=== PATIENT | female | born 1945 | race Caucasian/White ===

== ENCOUNTER 2022-02-03 14:35 | Inpatient (IN) | payer OTHER ==
[~2022-02-03] VITALS: Ht 162.6 cm; Wt 56.4 kg
[2022-02-03] MEDS ORDERED: ONDANSETRON HCL 4 MG/2 ML VIAL IV ONE (15:00)
[2022-02-03] MEDS ORDERED: MORPHINE SULFATE 4 MG/ML SYR/VIAL IV ONE (15:00)
[2022-02-03 15:18] LABS: Basophils # (auto) 0 10 ^3/uL (0-0.2); Basophils % (auto) 0.3 % (0.0-2.0); Eosinophils # (auto) 0.2 10 ^3/uL (0-0.8); Eosinophils % (auto) 2.4 % (0.0-7.0); Hematocrit 39.6 % (36.0-46.0); Hemoglobin 12.9 g/dL (12.2-16.2); Lymphocytes # (auto) 1.7 10 ^3/uL (0.4-5.4); Lymphocytes % (auto) 18.7 % (10.0-50.0); Mean Corpuscular Hemoglobin 27.8 pg (28.0-32.0); Mean Corpuscular Hgb Conc. 32.7 g/dL (32.0-36.0); Monocytes # (auto) 0.6 10 ^3/uL (0-1.3); Monocytes % (auto) 7.1 % (0.0-12.0); Neutrophils # (auto) 6.3 10 ^3/uL (1.6-8.6); Neutrophils % (auto) 71.5 % (37.0-80.0); Red Blood Cells 4.66 10^6/uL (4.0-5.20); Red Cell Distribution Width 15.6 % (11.8-14.3); White Blood Cell 8.9 10^3/uL (4.4-10.8)
[2022-02-03 15:30] LABS: INR 0.97 (0.9-1.15); Partial Thromboplastin Time 23.3 sec (24.6-33.4)
[2022-02-03 15:32] LABS: Albumin 3.2 g/dL (3.4-5.0); BUN/Creatinine Ratio 14.3; Calcium 8.7 mg/dL (8.5-10.1); Potassium 3.5 mmol/L (3.5-5.1)
[2022-02-03 15:35] LABS: Bilirubin, Total 0.2 mg/dL (0.2-1.0)
[2022-02-03] MEDS ORDERED: ONDANSETRON HCL 4 MG/2 ML VIAL IV PRN (21:15)
[2022-02-03] MEDS ORDERED: SOD CHL 0.45% 1,000 ML IV ONE (21:15)
[2022-02-03] MEDS ORDERED: NITROGLYCERIN 0.4 MG SL TAB SL PRN (21:15)
[2022-02-03] MEDS ORDERED: MORPHINE SULFATE INJ 2 MG/ml SYRG IV PRN (21:15)
[2022-02-04] VITALS (7 sets, daily range): BP systolic 125–154; BP diastolic 50–84
[2022-02-04 08:47] LABS: Basophils # (auto) 0 10 ^3/uL (0-0.2); Basophils % (auto) 0.4 % (0.0-2.0); Eosinophils # (auto) 0.1 10 ^3/uL (0-0.8); Hematocrit 39.3 % (36.0-46.0); Hemoglobin 13.1 g/dL (12.2-16.2); Lymphocytes % (auto) 9.2 % (10.0-50.0); Mean Corpuscular Hemoglobin 28.4 pg (28.0-32.0); Mean Corpuscular Hgb Conc. 33.4 g/dL (32.0-36.0); Mean Corpuscular Volume 85.2 fL (80.0-100.0); Monocytes # (auto) 0.9 10 ^3/uL (0-1.3); Monocytes % (auto) 8.9 % (0.0-12.0); Neutrophils # (auto) 8.4 10 ^3/uL (1.6-8.6); Neutrophils % (auto) 80.5 % (37.0-80.0); Red Blood Cells 4.61 10^6/uL (4.0-5.20); Red Cell Distribution Width 15.7 % (11.8-14.3); White Blood Cell 10.4 10^3/uL (4.4-10.8)
[2022-02-04 09:10] LABS: Potassium 3.4 mmol/L (3.5-5.1)
[2022-02-04 09:21] LABS: Bilirubin, Total 0.7 mg/dL (0.2-1.0); Calcium 8.5 mg/dL (8.5-10.1)
[2022-02-04] MEDS: ENOXAPARIN SOD 40 MG/0.4 ML SYRINGE SC SCH (09:44)
[2022-02-04] MEDS ORDERED: hydrALAZINE HCL 20 MG/ML VL IV PRN (10:00)
[2022-02-04] MEDS: PANTOPRAZOLE 40 MG TAB PO SCH (10:00)
[2022-02-04] MEDS ORDERED: DOCUSATE SOD 100 MG CAP PO PRN (10:00)
[2022-02-04] MEDS ORDERED: ALBUTEROL SULF 2.5 MG/0.5ML(0.5%) NEB SOLN NEB PRN (10:00)
[2022-02-04] MEDS: MORPHINE SULFATE INJ 2 MG/ml SYRG IV PRN (10:45)
[2022-02-04] MEDS: POTASSIUM CHL 20MEQ/100ML 100 ML IV SCH ×2 (10:46→12:00)
[2022-02-04] MEDS ORDERED: ceFAZolin 1GM/50ML 50 ML IV ONE (11:31)
[2022-02-04] MEDS ORDERED: fentaNYL CITRATE 100 MCG/2 ML VL ONE (11:33)
[2022-02-04] MEDS ORDERED: PROPOFOL 10 MG/ML 20 ML IV ONE (11:35)
[2022-02-04] MEDS ORDERED: DexAMETHasone SOD PHOS 10MG/1ML VIAL INJ ONE (11:35)
[2022-02-04] MEDS ORDERED: LIDOCAINE 2% (LOCAL ANESTH.) PF 5ml SDV ONE (11:35)
[2022-02-04] MEDS ORDERED: ONDANSETRON HCL 4 MG/2 ML VIAL ONE (11:35)
[2022-02-04] MEDS ORDERED: METOCLOPRAMIDE HCL 5MG/ml INJ 2ml VIAL ONE (11:35)
[2022-02-04] MEDS ORDERED: MIDAZOLAM HCL 2MG/2ML 2ml VIAL (1mg/ml) ONE (11:36)
[2022-02-04] MEDS ORDERED: EPINEPHrine HCL 1 MG/1 ML AMP ONE (12:00)
[2022-02-04] MEDS ORDERED: ePHEDrine SULFATE 50 MG/ML AMP ONE (12:12)
[2022-02-04] MEDS ORDERED: BUPIVACAINE 0.25% INJ 50ML VIAL ONE (13:08)
[2022-02-04] MEDS ORDERED: KETOROLAC TROMETH 30 MG/ML 1ML VIAL ONE (13:30)
[2022-02-04] MEDS: ceFAZolin 1GM/50ML 50 ML IV SCH ×2 (16:12→21:18)
[2022-02-04] MEDS ORDERED: POTASSIUM CHL 20MEQ/100ML 100 ML IV SCH (16:40)
[2022-02-04] MEDS: LACTATED RINGER'S 1,000 ML IV SCH (16:55)
[2022-02-05] MEDS: LACTATED RINGER'S 1,000 ML IV SCH ×2 (01:00→11:00)
[2022-02-05] MEDS: ceFAZolin 1GM/50ML 50 ML IV SCH (03:38)
[2022-02-05 05:00] VITALS: BP 165/69
[2022-02-05 06:27] LABS: Albumin 2.7 g/dL (3.4-5.0); Calcium 8.5 mg/dL (8.5-10.1); Potassium 3.8 mmol/L (3.5-5.1)
[2022-02-05 06:30] LABS: Basophils # (auto) 0 10 ^3/uL (0-0.2); Basophils % (auto) 0.1 % (0.0-2.0); Eosinophils # (auto) 0 10 ^3/uL (0-0.8); Hematocrit 36.2 % (36.0-46.0); Hemoglobin 12.1 g/dL (12.2-16.2); Lymphocytes % (auto) 7.1 % (10.0-50.0); Mean Corpuscular Hemoglobin 28.7 pg (28.0-32.0); Mean Corpuscular Hgb Conc. 33.4 g/dL (32.0-36.0); Monocytes # (auto) 0.9 10 ^3/uL (0-1.3); Monocytes % (auto) 6.7 % (0.0-12.0); Neutrophils % (auto) 86.1 % (37.0-80.0); Nucleated Red Blood Cells % 0.1 %; Red Blood Cells 4.21 10^6/uL (4.0-5.20)
[2022-02-05 06:31] LABS: BUN/Creatinine Ratio 21.6; Bilirubin, Total 0.5 mg/dL (0.2-1.0); Total Protein 6.2 g/dL (6.4-8.2)
[2022-02-05] MEDS ORDERED: LEVOTHYROXINE SODIUM 25 MCG TAB PO SCH (07:00)
[2022-02-05 08:00] VITALS: BP 170/65
[2022-02-05 09:00] VITALS: BP 141/53
[2022-02-05] MEDS: ENOXAPARIN SOD 40 MG/0.4 ML SYRINGE SC SCH (10:00)
[2022-02-05] MEDS: PANTOPRAZOLE 40 MG TAB PO SCH (10:20)
[2022-02-05 13:00] VITALS: BP 159/89
[2022-02-05 16:51] VITALS: BP 170/79
[2022-02-05 17:33] VITALS: BP 170/79
[2022-02-05] MEDS: MORPHINE SULFATE INJ 2 MG/ml SYRG IV PRN (17:33)
== END 2022-02-05 18:40 | DRG 482 ==
LOC: EDBD 14:35 → ER 14:35 → OVERFLOW 21:08 → WEST WING 02-04 02:30
PROVIDERS: ADMIT Internal Medicine; ATTEND Internal Medicine
PROC: 0QS634Z Reposition Right Upper Femur with Internal Fixation Device, Percutaneous Approach (ICD-10-PCS; principal; 2022-02-05)
DX: S72.011A Unspecified intracapsular fracture of right femur, initial encounter for closed fracture (principal); E78.5 Hyperlipidemia, unspecified; I10 Essential (primary) hypertension; E03.9 Hypothyroidism, unspecified; Z96.649 Presence of unspecified artificial hip joint; Z20.822 Contact with and (suspected) exposure to COVID-19; F17.210 Nicotine dependence, cigarettes, uncomplicated; Z90.710 Acquired absence of both cervix and uterus; Z90.49 Acquired absence of other specified parts of digestive tract; Z91.81 History of falling; Z86.73 Personal history of transient ischemic attack (TIA), and cerebral infarction without residual deficits; W52.XXXA Crushed, pushed or stepped on by crowd or human stampede, initial encounter; Y93.89 Activity, other specified; Y92.098 Other place in other non-institutional residence as the place of occurrence of the external cause; Y99.8 Other external cause status
CPT/HCPCS: 36415; 71045; 73502; 76000; 80053; 85025; 85610; 85730; 86850; 86900; 86901; 93005; 93306; 96361; 96374; 96375; G0378; J0171; J0690; J1100; J1885; J2001; J2250; J2405; J2704; J3480; J3490